=== PATIENT | male | born 1970 | race Hispanic/Latino ===

== ENCOUNTER 2024-03-16 09:09 | Emergency (ER) | payer OTHER ==
--- NOTE | 2024-03-16 09:58 | EDPHYS ---
Physician Documentation [facility] Name: Sanjay Cho Age: 53 yrs Sex: Male : 1970 Arrival Date: 03/16/2024 Time: 09:09 Bed 16 Private MD: ED Physician Priya Hightower HPI: 03/16 10:15 53-year-old male with bilateral ear discomfort. No drainage from the ear the patient gb1 was prescribed 10 days of amoxicillin about 10 days ago and is finished that course of medication. He was told that he had a bilateral ear infection. No fevers or chills. No swimming or being immersed in fluids.. Historical: - Allergies: : No Known Allergies; rs5 - PMHx: : None; rs5 - PSHx: 09:17 None; rs5 - Immunization history:: Adult Immunizations up to date. - Infectious Disease History:: Denies. - Social history:: Smoking status: Patient denies any tobacco usage or history of. Exam: 10:15 Constitutional: This is a well developed, well nourished patient who is awake, alert, gb1 and in no acute distress. Head/Face: Normocephalic, atraumatic. ENT: Nares patent. No nasal discharge, no septal abnormalities noted. Oropharynx with no redness, swelling, or masses, exudates, or evidence of obstruction, uvula midline. Mucous membranes moist. Bilateral ear canals are impacted with cerumen. Unable to visualize the TM Neck: Trachea midline, no thyromegaly or masses palpated, and no cervical lymphadenopathy. Supple, full range of motion without nuchal rigidity, or vertebral point tenderness. No Meningismus. Chest/axilla: Normal chest wall appearance and motion. Nontender with no deformity. No lesions are appreciated. Cardiovascular: Regular rate and rhythm with a normal S1 and S2. No gallops, murmurs, or rubs. Normal PMI, no JVD. No pulse deficits. Respiratory: Lungs have equal breath sounds bilaterally, clear to auscultation and percussion. No rales, rhonchi or wheezes noted. No increased work of breathing, no retractions or nasal flaring. Vital Signs: 09:17 BP 133 / 81; Pulse 76; Resp 18; Pulse Ox 98% on R/A; rs5 09:20 BP 120 / 77; Pulse 77; Resp 18; Temp 97.8(O); Pulse Ox 98% on R/A; rs5 10:00 BP 125 / 81; Pulse 77; Resp 17; Pulse Ox 98% ; rs5 MDM: 09:14 Patient medically screened. gb1 10:15 Data reviewed: vital signs, nurses notes. gb1 10:15 ED course: Both the patient's ears were irrigated by me with out incident. There was a gb1 large cerumen rocks that were coming from bilateral canals. TMs were visualized there was no ruptured TM in the process of irrigation. There were no signs of otitis media or externa.. Administered Medications: No medications were administered Disposition Summary: 03/16/24 09:58 Discharge Ordered Notes: YOU CAN BUY DEBROX DROPS OVER THE COUNTER AND USE 1-2X A WEEK Location: Home gb1 Condition: Stable gb1 Diagnosis - Impacted cerumen, bilateral gb1 Followup: gb1 - With: Private Physician - When: As needed - Reason: Discharge Instructions: - Discharge Summary Sheet gb1 - Earwax Buildup, Adult gb1 Forms: - Medication Reconciliation Form gb1 - Antibiotic Education gb1 - Prescription Opioid Use gb1 - Patient Portal Instructions gb1 - Leadership Thank You Letter gb1 Signatures: Yogesh Mendez, RN RN ll1 Matthew May, RN RN rs5 Priya Hightower MD MD gb1
--- NOTE | 2024-03-16 09:58 | ER ---
Nurse's Notes [facility] Name: Sanjay Cho Age: 53 yrs Sex: Male : 1970 Arrival Date: 03/16/2024 Time: 09:09 Bed 16 Private MD: Diagnosis: Impacted cerumen, bilateral Presentation: 03/16 09:16 Ebola Screen: Patient denies travel to an Ebola-affected area in the 21 days before ll1 illness onset. Initial Sepsis Screen: Does the patient meet any 2 criteria? No. Patient's initial sepsis screen is negative. Does the patient have a suspected source of infection? No. Patient's initial sepsis screen is negative. Risk Assessment: Do you want to hurt yourself or someone else? Patient reports no desire to harm self or others. 09:16 Method Of Arrival: Ambulatory ll1 09:16 Acuity: ALFONSO 4 ll1 09:17 Chief complaint: Patient states: Ear pain and difficulty hearing out of ears bilat. rs5 09:17 Coronavirus screen: At this time, the client does not indicate any symptoms associated rs5 with coronavirus-19. Onset of symptoms was March 07, 2024. Triage Assessment: 09:16 General: Appears in no apparent distress. Behavior is calm, cooperative, appropriate ll1 for age. EENT: Reports ear pain. Historical: - Allergies: 09:17 No Known Allergies; rs5 - PMHx: 09:17 None; rs5 - PSHx: 09:17 None; rs5 - Immunization history:: Adult Immunizations up to date. - Infectious Disease History:: Denies. - Social history:: Smoking status: Patient denies any tobacco usage or history of. Screenin:15 [facility] ED Fall Risk Assessment (Adult) History of falling in the last 3 months, rs5 including since admission No falls in past 3 months (0 pts) Confusion or Disorientation No (0 pts) Intoxicated or Sedated No (0 pts) Impaired Gait No (0 pts) Mobility Assist Device Used No (0 pt) Altered Elimination No (0 pt) Score/Fall Risk Level 0 - 2 = Low Risk Oriented to surroundings, Maintained a safe environment. Abuse screen: Denies threats or abuse. Nutritional screening: No deficits noted. Tuberculosis screening: No symptoms or risk factors identified. Assessment: 09:15 General: Appears in no apparent distress. comfortable, Behavior is calm, cooperative. rs5 Pain: Complains of pain in ears bilat Pain currently is 3 out of 10 on a pain scale. Quality of pain is described as aching. Neuro: Cardiovascular: Patient's skin is warm and dry. Respiratory: Airway is patent Respiratory effort is even, unlabored, Respiratory pattern is regular, symmetrical. GI: Abdomen is round non-distended, Abd is soft and non tender X 4 quads. EENT: Reports difficulty hearing out of ears bilat . Derm: Skin is intact, Skin is pink, warm \T\ dry. 09:30 Reassessment: Provider at bedside . rs5 09:50 Reassessment: Patient and/or family updated on plan of care and expected duration. Pain rs5 level reassessed. Patient is alert, oriented x 3, equal unlabored respirations, skin warm/dry/pink. Vital Signs: 09:17 BP 133 / 81; Pulse 76; Resp 18; Pulse Ox 98% on R/A; rs5 09:20 BP 120 / 77; Pulse 77; Resp 18; Temp 97.8(O); Pulse Ox 98% on R/A; rs5 10:00 BP 125 / 81; Pulse 77; Resp 17; Pulse Ox 98% ; rs5 ED Course: 09:12 Patient arrived in ED. mr 09:13 Arm band placed on Patient placed in an exam room, on a stretcher. ll1 09:14 Priya Hightower MD is Attending Physician. gb1 09:15 Patient has correct armband on for positive identification. Placed in gown. Bed in low rs5 position. Call light in reach. Side rails up X2. 09:15 No provider procedures requiring assistance completed. rs5 09:16 Triage completed. ll1 09:45 Ear irrigation: Route left ear Patient tolerated well. db 10:00 Patient did not have IV access during this emergency room visit. rs5 10:07 Matthew May, HEMANT is Primary Nurse. rs5 Administered Medications: No medications were administered Medication: 10:00 VIS not applicable for this client. rs5 Outcome: 09:58 Discharge ordered by . gb1 10:00 Discharged to home ambulatory, rs5 10:00 Condition: stable 10:00 Discharge instructions given to patient, family, Instructed on discharge instructions, follow up and referral plans. Demonstrated understanding of instructions, follow-up care, 10:07 Patient left the ED. rs5 Signatures: Judy Urban, Reg Reg mr Yogesh Mendez, RN RN ll1 Oneida Eng RN RN db Matthew May RN RN rs5 Priya Hightower MD MD gb1
== END 2024-03-16 10:07 | disposition home or self-care (01) ==
LOC: ER 09:09
PROC: 3E1B78Z Irrigation of Ear using Irrigating Substance, Via Natural or Artificial Opening (ICD-10-PCS; principal; 2024-03-16)
PROC: 3E1B78Z Irrigation of Ear using Irrigating Substance, Via Natural or Artificial Opening (ICD-10-PCS; 2024-03-16)
DX: H61.23 Impacted cerumen, bilateral (principal)